=== PATIENT | male | born 1950 | race Caucasian/White ===

== ENCOUNTER 2018-08-14 13:54 | Inpatient (IN) | payer MEDICARE, OTHER ==
[2018-08-14 14:34] LABS: ADD MAN DIFF? NO
[2018-08-14 14:37] LABS: WHITE BLOOD COUNT 11.7 10^3/ul (4.8-10.8)
[2018-08-14 14:37] LABS: BASOPHILS % 0.3 % (0.0-2.0); EOSINOPHILS % 0.1 % (0.0-7.0); HEMATOCRIT 46.1 % (42.0-52.0); HEMOGLOBIN 15.1 g/dl (14.0-18.0); LYMPHOCYTES # 0.9 10^3/ul (0.8-2.9); LYMPHOCYTES % 7.4 % (15.0-51.0); MEAN CORPUSCULAR HEMOGLOBIN 36.7 pg (29.0-33.0); MEAN CORPUSCULAR HGB CONC 32.8 g/dl (32.0-37.0); MEAN CORPUSCULAR VOLUME 111.9 fl (82.0-101.0); MEAN PLATELET VOLUME 10.1 fl (7.4-10.4); MONOCYTE # 0.5 10^3/ul (0.3-0.9); MONOCYTES % 4.3 % (0.0-11.0); NEUTROPHIL # 10.2 10^3/ul (1.6-7.5); NEUTROPHILS % 87.3 % (39.0-77.0); PLATELET COUNT 153 10^3/UL (140-415); RED BLOOD COUNT 4.12 10^6/ul (4.70-6.10); RED CELL DISTRIBUTION WIDTH 14.6 % (11.5-14.5)
[2018-08-14] MEDS: HYDROmorphONE 1 MG/ML SYG IV (14:53)
[2018-08-14] MEDS: SOD CHLORIDE 0.9% 1,000 ML IV ×3 (14:53→19:59)
[2018-08-14] MEDS: ONDANSETRON 4 MG INJ IV (14:53)
[2018-08-14 15:04] LABS: ADD UMIC YES; UR ASCORBIC ACID 40 mg/dL (NEGATIVE); UR BILIRUBIN (Dip) NEGATIVE (NEGATIVE); UR BLOOD (Dip) NEGATIVE (NEGATIVE); UR CLARITY CLEAR (CLEAR); UR COLOR AMBER (YELLOW); UR GLUCOSE (Dip) NEGATIVE (NEGATIVE); UR KETONES (Dip) NEGATIVE (NEGATIVE); UR LEUKOCYTE ESTERASE (Dip) NEGATIVE Leu/ul (NEGATIVE); UR MUCUS FEW /HPF (NONE SEEN); UR NITRITE (Dip) NEGATIVE (NEGATIVE); UR RBC 2 /HPF (0-5); UR TOTAL PROTEIN (Dip) 1+ mg/dl (NEGATIVE); UR UROBILINOGEN (Dip) 2+ mg/dL (NEGATIVE); UR WBC 2 /HPF (0-5)
[2018-08-14 15:28] LABS: ALANINE AMINOTRANSFERASE 11 IU/L (13-69); ALBUMIN 2.7 g/dl (3.3-4.9); ALBUMIN/GLOBULIN RATIO 0.55; ALKALINE PHOSPHATASE 116 IU/L (42-121); ANION GAP 6 (5-13); ASPARTATE AMINO TRANSFERASE 40 IU/L (15-46); BILIRUBIN,INDIRECT 0.1 mg/dl (0-1.1); BILIRUBIN,TOTAL 0.1 mg/dl (0.2-1.3); BLOOD UREA NITROGEN 16 mg/dl (7-20); CALCIUM 9.2 mg/dl (8.4-10.2); CARBON DIOXIDE 34 mmol/L (21-31); CHLORIDE 93 mmol/L (97-110); CREATININE 0.53 mg/dl (0.61-1.24); Estimated GFR > 60 mL/min (>60); GLUCOSE 100 mg/dl (70-220); LIPASE 120 U/L (23-300); POTASSIUM 4.5 mmol/L (3.5-5.1); SODIUM 133 mmol/L (135-144); TOTAL PROTEIN 7.6 g/dl (6.1-8.1)
[2018-08-14 15:39] LABS: TROPONIN-I < 0.012 ng/ml (0.000-0.120)
[2018-08-14] MEDS: HYDROmorphONE 2 MG/ML SYG IV (16:24)
[2018-08-14] MEDS ORDERED: ACETAMINOPHEN 325 MG TAB PO (16:30)
[2018-08-14] MEDS ORDERED: ONDANSETRON 4 MG INJ IV ×2 (16:30→18:30)
[2018-08-14] MEDS ORDERED: MAGNESIUM HYDROXIDE 30ML CUP PO (18:30)
[2018-08-14] MEDS ORDERED: BISACODYL 10 MG RC (18:30)
[2018-08-14] MEDS ORDERED: SCOPOLAMINE TD (18:30)
[2018-08-14] MEDS ORDERED: hydrALAzine 20 MG INJ IV (18:30)
[2018-08-14] MEDS ORDERED: NA PHOSPHATE/BIPHOS 133 ML ENEMA PR (18:30)
[2018-08-14] MEDS ORDERED: NITROGLYCERIN (SL) 0.4 MG TAB SL (18:30)
[2018-08-14] MEDS ORDERED: DOCUSATE SODIUM 100 MG CAP PO (18:30)
[2018-08-14] MEDS ORDERED: NACL 0.9% 3 ML SYG IV (18:30)
[2018-08-14] MEDS ORDERED: PENDING SANTYL ORDER FOR WOUND CARE XX (19:30)
[2018-08-14 19:33] LABS: INR 1.03; PROTIME 13.6 Sec (11.9-14.9); PT RATIO 1.1
[2018-08-14 19:34] LABS: PARTIAL THROMBOPLASTIN TIME 37.3 Sec (23.0-35.0)
[2018-08-14 19:54] LABS: FREE T4 (FREE THYROXINE) 0.88 ng/dl (0.78-2.44)
[2018-08-14] MEDS ORDERED: BISACODYL 10 MG SUPP PR (20:00)
[2018-08-14] MEDS ORDERED: METHYLPHENIDATE HCL 10 MG GTB (21:00)
[2018-08-14] MEDS: FENTAnyl PATCH 12 MCG/HR TRANSDERM (21:00)
[2018-08-14] MEDS ORDERED: HEPARIN 5,000 UNIT/0.5 ML VIAL (21:02)
[2018-08-14] MEDS: MIRTAZAPINE 15 MG TAB GTB (21:05)
[2018-08-14] MEDS: SENNA TAB GTB (21:06)
[2018-08-14] MEDS: HYDROCODONE/APAP (5/325) TAB PO (21:06)
[2018-08-14] MEDS: HEPARIN SODIUM 5,000 UNIT/ML VIAL SC (21:09)
[2018-08-14] MEDS ORDERED: METHYLPHENIDATE 5 MG TAB PO (23:00)
[2018-08-15] MEDS: SOD CHLORIDE 0.9% 1,000 ML IV ×3 (04:16→22:44)
[2018-08-15 06:19] LABS: ADD MAN DIFF? NO
[2018-08-15] MEDS: PANTOPRAZOLE 40 MG INJ IV (06:32)
[2018-08-15] MEDS: LEVOTHYROXINE 88 MCG TAB PO (06:33)
[2018-08-15] MEDS: LEVOFLOXACIN 750MG/D5W (PMX) 150 ML IVPB (06:33)
[2018-08-15 06:37] LABS: BASOPHILS % 0.2 % (0.0-2.0); EOSINOPHILS % 0.6 % (0.0-7.0); HEMATOCRIT 35.9 % (42.0-52.0); HEMOGLOBIN 12.1 g/dl (14.0-18.0); LYMPHOCYTES # 0.8 10^3/ul (0.8-2.9); LYMPHOCYTES % 15.4 % (15.0-51.0); MEAN CORPUSCULAR HEMOGLOBIN 36.2 pg (29.0-33.0); MEAN CORPUSCULAR HGB CONC 33.7 g/dl (32.0-37.0); MEAN CORPUSCULAR VOLUME 107.5 fl (82.0-101.0); MEAN PLATELET VOLUME 10.9 fl (7.4-10.4); MONOCYTE # 0.2 10^3/ul (0.3-0.9); MONOCYTES % 4.3 % (0.0-11.0); NEUTROPHIL # 3.9 10^3/ul (1.6-7.5); NEUTROPHILS % 79.1 % (39.0-77.0); PLATELET COUNT 140 10^3/UL (140-415); RED BLOOD COUNT 3.34 10^6/ul (4.70-6.10); RED CELL DISTRIBUTION WIDTH 14.5 % (11.5-14.5)
[2018-08-15 06:37] LABS: WHITE BLOOD COUNT 4.9 10^3/ul (4.8-10.8)
[2018-08-15 07:06] LABS: ANION GAP 5 (5-13); BLOOD UREA NITROGEN 13 mg/dl (7-20); CALCIUM 8.4 mg/dl (8.4-10.2); CARBON DIOXIDE 32 mmol/L (21-31); CHLORIDE 97 mmol/L (97-110); CHOL/HDL RATIO 3.2 RATIO; CHOLESTEROL 98 mg/dl (100-200); CREATININE 0.44 mg/dl (0.61-1.24); Estimated GFR > 60 mL/min (>60); GLUCOSE 109 mg/dl (70-220); HDL CHOLESTEROL 30 mg/dl (31-75); LDL CHOLESTEROL,CALCULATED 52 mg/dl; PHOSPHORUS 2.9 mg/dl (2.5-4.9); SODIUM 134 mmol/L (135-144); TRIGLYCERIDES 80 mg/dl (0-149)
[2018-08-15 07:17] LABS: POTASSIUM 4.1 mmol/L (3.5-5.1)
[2018-08-15] MEDS ORDERED: HEPARIN 5,000 UNIT/0.5 ML VIAL (08:47)
[2018-08-15] MEDS: ASCORBIC ACID 500 MG TAB GTB (08:59)
[2018-08-15] MEDS: ZINC SULFATE 220 MG CAP GTB (08:59)
[2018-08-15] MEDS: METHYLPHENIDATE 5 MG TAB GTB ×3 (08:59→21:04)
[2018-08-15] MEDS: MULTIVITAMINS THERAPEUTIC TAB GTB (08:59)
[2018-08-15] MEDS: SENNA TAB GTB ×2 (08:59→21:04)
[2018-08-15] MEDS: POLYETHYLENE GLYCOL 17 GM PACKET GTB (08:59)
[2018-08-15] MEDS: HEPARIN SODIUM 5,000 UNIT/ML VIAL SC (09:00)
[2018-08-15] MEDS: HYDROCODONE/APAP (5/325) TAB PO ×4 (09:06→22:59)
[2018-08-15] MEDS: ENOXAPARIN 40 MG/0.4 ML SYG SC (09:13)
[2018-08-15 09:40] LABS: HEMOGLOBIN A1C 5.4 % (0-5.9)
[2018-08-15] MEDS: morphine 2 MG INJ IV ×2 (12:08→17:37)
[2018-08-15] MEDS: MIRTAZAPINE 15 MG TAB GTB (21:05)
[2018-08-15] MEDS: NACL 3% FOR INHALATION 15 ML NEBU NEB (23:36)
[2018-08-15] MEDS: ACETYLCYSTEINE 20% 4 ML VIAL NEB (23:55)
[2018-08-15] MEDS: ALBUTEROL/IPRATROPIUM (NEB) 3 ML AMP HHN (23:58)
[2018-08-16] MEDS: morphine 2 MG INJ IV ×2 (00:30→05:25)
[2018-08-16] MEDS: PANTOPRAZOLE 40 MG INJ IV (05:24)
[2018-08-16] MEDS: LEVOFLOXACIN 750MG/D5W (PMX) 150 ML IVPB (05:24)
[2018-08-16 05:45] LABS: ADD MAN DIFF? NO
[2018-08-16 06:00] LABS: WHITE BLOOD COUNT 3.1 10^3/ul (4.8-10.8)
[2018-08-16 06:00] LABS: ABNORMAL IP MESSAGE 1; EOSINOPHILS % 0.7 % (0.0-7.0); HEMATOCRIT 31.1 % (42.0-52.0); HEMOGLOBIN 10.3 g/dl (14.0-18.0); LYMPHOCYTES # 0.5 10^3/ul (0.8-2.9); LYMPHOCYTES % 16.9 % (15.0-51.0); MEAN CORPUSCULAR HEMOGLOBIN 35.8 pg (29.0-33.0); MEAN CORPUSCULAR HGB CONC 33.1 g/dl (32.0-37.0); MEAN PLATELET VOLUME 10.8 fl (7.4-10.4); MONOCYTE # 0.3 10^3/ul (0.3-0.9); MONOCYTES % 8.8 % (0.0-11.0); NEUTROPHIL # 2.3 10^3/ul (1.6-7.5); NEUTROPHILS % 73.3 % (39.0-77.0); PLATELET COUNT 122 10^3/UL (140-415); POSITIVE DIFF @See below; RED BLOOD COUNT 2.88 10^6/ul (4.70-6.10); RED CELL DISTRIBUTION WIDTH 14.2 % (11.5-14.5)
[2018-08-16 06:23] LABS: ANION GAP 2 (5-13); BLOOD UREA NITROGEN 13 mg/dl (7-20); CALCIUM 7.9 mg/dl (8.4-10.2); CARBON DIOXIDE 31 mmol/L (21-31); CHLORIDE 101 mmol/L (97-110); CREATININE 0.36 mg/dl (0.61-1.24); Estimated GFR > 60 mL/min (>60); GLUCOSE 113 mg/dl (70-220); POTASSIUM 3.6 mmol/L (3.5-5.1); SODIUM 134 mmol/L (135-144)
[2018-08-16] MEDS: LEVOTHYROXINE 88 MCG TAB PO (06:40)
[2018-08-16] MEDS: MULTIVITAMINS THERAPEUTIC TAB GTB (08:51)
[2018-08-16] MEDS: ASCORBIC ACID 500 MG TAB GTB (08:51)
[2018-08-16] MEDS: ZINC SULFATE 220 MG CAP GTB (08:51)
[2018-08-16] MEDS: POLYETHYLENE GLYCOL 17 GM PACKET GTB (08:51)
[2018-08-16] MEDS: SENNA TAB GTB ×2 (08:51→20:21)
[2018-08-16] MEDS: ENOXAPARIN 40 MG/0.4 ML SYG SC (08:53)
[2018-08-16] MEDS: METHYLPHENIDATE 5 MG TAB GTB ×4 (08:56→20:22)
[2018-08-16] MEDS: SOD CHLORIDE 0.9% 1,000 ML IV ×2 (10:10→20:21)
[2018-08-16] MEDS: HYDROCODONE/APAP (5/325) TAB PO (10:57)
[2018-08-16] MEDS: LIDOCAINE 5% 35 GM OINT TOP (12:51)
[2018-08-16] MEDS: SCOPOLAMINE 1.5 MG PATCH TRANSDERM (12:51)
[2018-08-16] MEDS: HYDROCODONE/APAP (10/325) TAB PO ×2 (17:06→22:44)
[2018-08-16] MEDS: MIRTAZAPINE 15 MG TAB GTB (20:22)
[2018-08-17] MEDS: PANTOPRAZOLE 40 MG INJ IV (06:00)
[2018-08-17] MEDS: LEVOFLOXACIN 750MG/D5W (PMX) 150 ML IVPB (06:00)
[2018-08-17] MEDS: LEVOTHYROXINE 88 MCG TAB PO (07:04)
[2018-08-17] MEDS: SOD CHLORIDE 0.9% 1,000 ML IV ×3 (07:04→20:51)
[2018-08-17] MEDS: METHYLPHENIDATE 20 MG TAB GTB ×2 (09:00→15:51)
[2018-08-17] MEDS: POLYETHYLENE GLYCOL 17 GM PACKET GTB (09:03)
[2018-08-17] MEDS: SENNA TAB GTB ×2 (09:03→20:50)
[2018-08-17] MEDS: ASCORBIC ACID 500 MG TAB GTB (09:03)
[2018-08-17] MEDS: MULTIVITAMINS THERAPEUTIC TAB GTB (09:03)
[2018-08-17] MEDS: ZINC SULFATE 220 MG CAP GTB (09:04)
[2018-08-17] MEDS: ENOXAPARIN 40 MG/0.4 ML SYG SC (09:14)
[2018-08-17] MEDS: morphine 2 MG INJ IV ×2 (10:44→15:51)
[2018-08-17] MEDS: METHYLPHENIDATE 5 MG TAB GTB ×2 (12:18→20:50)
[2018-08-17 13:46] LABS: ADD MAN DIFF? NO
[2018-08-17 13:50] LABS: ABNORMAL IP MESSAGE 1; BASOPHILS % 0.4 % (0.0-2.0); EOSINOPHILS % 0.8 % (0.0-7.0); HEMATOCRIT 36.6 % (42.0-52.0); HEMOGLOBIN 12.2 g/dl (14.0-18.0); LYMPHOCYTES # 0.4 10^3/ul (0.8-2.9); LYMPHOCYTES % 16.8 % (15.0-51.0); MEAN CORPUSCULAR HEMOGLOBIN 35.7 pg (29.0-33.0); MEAN CORPUSCULAR HGB CONC 33.3 g/dl (32.0-37.0); MEAN PLATELET VOLUME 10.2 fl (7.4-10.4); MONOCYTE # 0.3 10^3/ul (0.3-0.9); MONOCYTES % 10.7 % (0.0-11.0); NEUTROPHIL # 1.9 10^3/ul (1.6-7.5); NEUTROPHILS % 70.9 % (39.0-77.0); PLATELET COUNT 124 10^3/UL (140-415); POSITIVE DIFF @See below; RED BLOOD COUNT 3.42 10^6/ul (4.70-6.10); RED CELL DISTRIBUTION WIDTH 14.1 % (11.5-14.5)
[2018-08-17 13:50] LABS: WHITE BLOOD COUNT 2.6 10^3/ul (4.8-10.8)
[2018-08-17 14:05] LABS: ANION GAP 5 (5-13); BLOOD UREA NITROGEN 12 mg/dl (7-20); CALCIUM 8.5 mg/dl (8.4-10.2); CARBON DIOXIDE 32 mmol/L (21-31); CHLORIDE 97 mmol/L (97-110); CREATININE 0.35 mg/dl (0.61-1.24); Estimated GFR > 60 mL/min (>60); GLUCOSE 94 mg/dl (70-220); POTASSIUM 3.9 mmol/L (3.5-5.1); SODIUM 134 mmol/L (135-144)
[2018-08-17] MEDS: MIRTAZAPINE 15 MG TAB GTB (20:50)
[2018-08-17] MEDS: FENTAnyl PATCH 12 MCG/HR TRANSDERM (20:59)
[2018-08-17] MEDS: HYDROCODONE/APAP (10/325) TAB PO (21:02)
[2018-08-18] MEDS: SOD CHLORIDE 0.9% 1,000 ML IV ×3 (02:16→22:16)
[2018-08-18] MEDS: HYDROCODONE/APAP (10/325) TAB PO ×4 (02:31→23:50)
[2018-08-18] MEDS: PANTOPRAZOLE 40 MG INJ IV (05:59)
[2018-08-18] MEDS: LEVOFLOXACIN 750MG/D5W (PMX) 150 ML IVPB (05:59)
[2018-08-18] MEDS: LEVOTHYROXINE 88 MCG TAB PO (06:03)
[2018-08-18 07:12] LABS: ADD MAN DIFF? NO
[2018-08-18 07:15] LABS: WHITE BLOOD COUNT 2.1 10^3/ul (4.8-10.8)
[2018-08-18 07:15] LABS: ABNORMAL IP MESSAGE 1; BASOPHILS % 0.5 % (0.0-2.0); EOSINOPHILS % 1.4 % (0.0-7.0); HEMATOCRIT 34.1 % (42.0-52.0); HEMOGLOBIN 11.4 g/dl (14.0-18.0); LYMPHOCYTES # 0.6 10^3/ul (0.8-2.9); LYMPHOCYTES % 27.5 % (15.0-51.0); MEAN CORPUSCULAR HEMOGLOBIN 36.2 pg (29.0-33.0); MEAN CORPUSCULAR HGB CONC 33.4 g/dl (32.0-37.0); MEAN CORPUSCULAR VOLUME 108.3 fl (82.0-101.0); MONOCYTE # 0.3 10^3/ul (0.3-0.9); NEUTROPHIL # 1.1 10^3/ul (1.6-7.5); NEUTROPHILS % 55.1 % (39.0-77.0); PLATELET COUNT 107 10^3/UL (140-415); POSITIVE DIFF @See below; RED BLOOD COUNT 3.15 10^6/ul (4.70-6.10); RED CELL DISTRIBUTION WIDTH 14.3 % (11.5-14.5)
[2018-08-18 07:18] LABS: PATH REVIEW? YES
[2018-08-18 08:03] LABS: ANION GAP 5 (5-13); BLOOD UREA NITROGEN 13 mg/dl (7-20); CALCIUM 8.3 mg/dl (8.4-10.2); CARBON DIOXIDE 30 mmol/L (21-31); CHLORIDE 101 mmol/L (97-110); CREATININE 0.42 mg/dl (0.61-1.24); Estimated GFR > 60 mL/min (>60); GLUCOSE 97 mg/dl (70-220); POTASSIUM 3.8 mmol/L (3.5-5.1); SODIUM 136 mmol/L (135-144)
[2018-08-18] MEDS: ASCORBIC ACID 500 MG TAB GTB (09:00)
[2018-08-18] MEDS: SENNA TAB GTB ×2 (09:00→20:31)
[2018-08-18 09:10] LABS: ANISOCYTOSIS 1+ (0-0); BAND NEUTROPHILS #M 0.2 10^3/ul (0.0-0.6); BAND NEUTROPHILS % (M) 10 % (0-4); GIANT THROMBO% (M) 1 % (0-0); LYMPHOCYTES #M 0.3 10^3/ul (0.8-2.9); LYMPHOCYTES % (M) 19 % (15-51); MONOCYTE #M 0.3 10^3/ul (0.3-0.9); MONOCYTES % (M) 15 % (0-11); PLATELET ESTIMATE DECREASED; REACTIVE LYMPHOCYTES% (M) 1 % (0-0); SEG NEUT #M 1.2 10^3/ul (1.6-7.5); SEGMENTED NEUTROPHILS (M) % 55 % (39-77); SMUDGE%M 14 % (0-0)
[2018-08-18] MEDS: MULTIVITAMINS THERAPEUTIC TAB GTB (10:14)
[2018-08-18] MEDS: ZINC SULFATE 220 MG CAP GTB (10:14)
[2018-08-18] MEDS: POLYETHYLENE GLYCOL 17 GM PACKET GTB (10:30)
[2018-08-18] MEDS: METHYLPHENIDATE 5 MG TAB GTB ×3 (10:31→17:28)
[2018-08-18] MEDS: ENOXAPARIN 40 MG/0.4 ML SYG SC (10:50)
[2018-08-18] MEDS: morphine 2 MG INJ IV (14:11)
[2018-08-18] MEDS: ACETAMINOPHEN 325 MG TAB PO (20:31)
[2018-08-18] MEDS: MIRTAZAPINE 15 MG TAB GTB (20:31)
[2018-08-18] MEDS: LORAZEPAM 2 MG INJ IV (22:19)
[2018-08-19] MEDS: SOD CHLORIDE 0.9% 1,000 ML IV ×2 (06:01→08:16)
[2018-08-19] MEDS: LEVOFLOXACIN 750MG/D5W (PMX) 150 ML IVPB (06:01)
[2018-08-19] MEDS: LEVOTHYROXINE 88 MCG TAB PO (06:01)
[2018-08-19] MEDS: PANTOPRAZOLE 40 MG INJ IV (06:01)
[2018-08-19 06:13] LABS: ADD MAN DIFF? NO
[2018-08-19 06:17] LABS: WHITE BLOOD COUNT 1.9 10^3/ul (4.8-10.8)
[2018-08-19 06:17] LABS: ABNORMAL IP MESSAGE 1; BASOPHILS % 0.5 % (0.0-2.0); EOSINOPHILS % 2.1 % (0.0-7.0); HEMATOCRIT 34.7 % (42.0-52.0); HEMOGLOBIN 11.6 g/dl (14.0-18.0); LYMPHOCYTES # 0.7 10^3/ul (0.8-2.9); LYMPHOCYTES % 37.6 % (15.0-51.0); MEAN CORPUSCULAR HEMOGLOBIN 35.7 pg (29.0-33.0); MEAN CORPUSCULAR HGB CONC 33.4 g/dl (32.0-37.0); MEAN CORPUSCULAR VOLUME 106.8 fl (82.0-101.0); MEAN PLATELET VOLUME 11.1 fl (7.4-10.4); MONOCYTE # 0.3 10^3/ul (0.3-0.9); MONOCYTES % 13.8 % (0.0-11.0); NEUTROPHIL # 0.9 10^3/ul (1.6-7.5); NEUTROPHILS % 44.9 % (39.0-77.0); PLATELET COUNT 106 10^3/UL (140-415); POSITIVE DIFF @See below; RED BLOOD COUNT 3.25 10^6/ul (4.70-6.10); RED CELL DISTRIBUTION WIDTH 14.3 % (11.5-14.5)
[2018-08-19 06:34] LABS: ANION GAP 3 (5-13); BLOOD UREA NITROGEN 16 mg/dl (7-20); CALCIUM 8.4 mg/dl (8.4-10.2); CARBON DIOXIDE 31 mmol/L (21-31); CHLORIDE 102 mmol/L (97-110); Estimated GFR > 60 mL/min (>60); GLUCOSE 83 mg/dl (70-220); POTASSIUM 4.4 mmol/L (3.5-5.1); SODIUM 136 mmol/L (135-144)
[2018-08-19] MEDS: ASCORBIC ACID 500 MG TAB GTB (10:03)
[2018-08-19] MEDS: SENNA TAB GTB (10:03)
[2018-08-19] MEDS: POLYETHYLENE GLYCOL 17 GM PACKET GTB (10:03)
[2018-08-19] MEDS: ZINC SULFATE 220 MG CAP GTB (10:03)
[2018-08-19] MEDS: METHYLPHENIDATE 5 MG TAB GTB ×2 (10:04→13:07)
[2018-08-19] MEDS: HYDROCODONE/APAP (10/325) TAB PO (10:05)
[2018-08-19] MEDS: MULTIVITAMINS THERAPEUTIC TAB GTB (10:05)
[2018-08-19] MEDS: ENOXAPARIN 40 MG/0.4 ML SYG SC (10:22)
[2018-08-19] MEDS: LIDOCAINE 5% 35 GM OINT TOP (13:07)
== END 2018-08-19 14:19 | DRG 190 ==
LOC: E/R 13:54 → 6WM 08-17 18:09
DX: J44.1 Chronic obstructive pulmonary disease with (acute) exacerbation (principal); E43 Unspecified severe protein-calorie malnutrition; J96.01 Acute respiratory failure with hypoxia; Z68.1 Body mass index [BMI] 19.9 or less, adult; R53.1 Weakness; E86.0 Dehydration; I10 Essential (primary) hypertension; E03.9 Hypothyroidism, unspecified; Z66 Do not resuscitate; Z93.1 Gastrostomy status; Z85.46 Personal history of malignant neoplasm of prostate; Z85.819 Personal history of malignant neoplasm of unspecified site of lip, oral cavity, and pharynx; Z99.81 Dependence on supplemental oxygen
CPT/HCPCS: 36415; 71045; 80048; 80053; 80061; 81001; 83036; 83690; 83735; 84100; 84439; 84443; 84484; 85025; 85610; 85730; 87070; 87081; 89220; 92526; 92610; 94640; 94664; 96374; 96375; 97110; 97116; 97161; 97166; 97530; 97535; 99285-25